=== PATIENT | male | born 1970 | race Caucasian/White ===

== ENCOUNTER 2025-01-20 13:42 | Emergency (ER) | payer OTHER ==
[2025-01-20 13:52] VITALS: BP 133/88; PULSE 68; RESP 18; TEMP 98.4; BMI 24.6
[2025-01-20] MEDS ORDERED: LIDOCAINE 4% PATCH TP ONE (14:45)
[2025-01-20] MEDS ORDERED: KETOROLAC TROMETHAMINE 15 MG/ML VIAL ONE (14:45)
[2025-01-20] MEDS ORDERED: ACETAMINOPHEN 500 MG TABLET (FP) ONE (14:45)
[2025-01-20] MEDS: LIDOCAINE 4% PATCH TP ONE (14:50)
[2025-01-20] MEDS: KETOROLAC TROMETHAMINE 15 MG/ML VIAL IM ONE (14:50)
[2025-01-20] MEDS: ACETAMINOPHEN 500 MG TABLET (FP) PO ONE (14:51)
[2025-01-20] MEDS ORDERED: LIDOCAINE PATCH REMOVAL MC SCH (22:00)
== END 2025-01-20 16:00 | disposition home or self-care (01) ==
LOC: JERFT 13:42
PROC: 3E0233Z Introduction of Anti-inflammatory into Muscle, Percutaneous Approach (ICD-10-PCS; principal; 2025-01-20)
DX: S83.92XA Sprain of unspecified site of left knee, initial encounter (principal); W10.9XXA Fall (on) (from) unspecified stairs and steps, initial encounter; Y92.009 Unspecified place in unspecified non-institutional (private) residence as the place of occurrence of the external cause; Y93.01 Activity, walking, marching and hiking
CPT/HCPCS: 73562-TC-LT-FY; 99284-25